=== PATIENT | male | born 1970 | race Caucasian/White ===

== ENCOUNTER 2021-04-26 08:47 | Emergency (ER) | payer OTHER, SELFPAY ==
[2021-04-26 08:58] VITALS: BP 126/78; PULSE 77; RESP 16; TEMP 36.6; O2SAT 99
--- NOTE | 2021-04-26 09:31 | ED.GENADULT ---
HPI - General Adult General Chief complaint: Unspecified Stated complaint: left side pain Time Seen by Provider: 04/26/21 09:18 Source: patient and RN notes reviewed Mode of arrival: ambulatory Limitations: no limitations History of Present Illness HPI narrative: Patient presents today complaining of intermittent left lateral chest wall pain. States the pain comes and goes. He just got out of the hospital yesterday after being worked up with an echocardiogram, EKG, and other blood tests for the last 1.5 days. He was seen by signaling project engineer and told that he either had a virus or muscle strain. He cannot follow-up with his PCP until next Thursday and is having so much discomfort he wanted to follow-up and see if there were any scans that could be done to see if this was a muscle issue. Currently rates his pain 5/10 and tried some ice this morning with some mild relief. Pain does not increase with deep breaths or arm movement. It does increase with touching of the area. Denies shortness of breath, numbness or tingling in the extremities, abdominal pain, nausea or vomiting. MD complaint: Left chest wall pain Related Data Home Medications Medication Instructions Recorded Confirmed atorvastatin 40 mg PO DAILY 03/02/19 04/26/21 pantoprazole 40 mg PO DIRECTED 03/02/19 04/26/21 zolpidem 10 mg PO DAILY 03/02/19 04/26/21 aspirin [Aspirin Low Dose] 81 mg PO DAILY 04/26/21 04/26/21 [id number] C-Mn 1 cap PO DIRECTED 04/26/21 04/26/21 [Glucosamine 1500 Complex] multivitamin with minerals [All 1 tablet PO DAILY 04/26/21 04/26/21 Purpose Multivitamin-Min] Allergies Allergy/AdvReac Type Severity Reaction Status Date / Time No Known Allergies Allergy Verified 04/26/21 09:03 Review of Systems Review of Systems: CONSTITUTIONAL: Denies body aches, fever, chills, or sweats. EYES: Denies visual changes, redness, or discharge. ENT: Denies rhinorrhea, congestion, sore throat, or otalgia. CARDIOVASCULAR: Denies chest pain, palpitations, or edema. RESPIRATORY: Denies cough or dyspnea. GASTROINTESTINAL: Denies abdominal pain, nausea, vomiting, or diarrhea. GENITOURINARY: Denies dysuria or hematuria. SKIN: Denies rash, itching, or wounds. MUSCULOSKELETAL: Denies back pain, joint pain, or myalgia.+ Chest wall pain NEUROLOGIC: Denies headache, numbness, tingling, or weakness. PSYCH: Denies depression or anxiety. [facility] Past Medical History Medical History (Updated 04/26/21 @ 09:37 by Paula Garcia, [facility], ) Insomnia Myocardial infarction Surgical History Surgical History (Updated 04/26/21 @ 09:34 by Paula Garcia, [facility], ) History of heart artery stent Social History Social History Gender identity (if verbalized by the patient): Male Comments At time of signature, I have reviewed and agree with nursing past medical, surgical, social and family history unless otherwise noted. Please see nursing chart for further information. There is no relevant family history pertinent to the presenting complaint Exam Narrative: GENERAL: Well-appearing, well-nourished, and in mild pain distress. HEAD: Normocephalic, atraumatic. EYES: EOMI. No redness or drainage. Conjunctivae normal. ENT: Mucous membranes pink and moist. Left lateral chest wall tenderness that extends up to the axilla. No edema, ecchymosis, erythema, crepitus, deformity. Pain in this area does not increase with movement of the arm. No tenderness to the anterior chest or back. NECK: Normal AROM. CHEST: No respiratory distress. Clear to auscultation. HEART: Regular rate and rhythm. No murmur appreciated. Normal peripheral pulses. ABDOMEN: Soft, nontender, nondistended, normal active bowel sounds. EXTREMITIES: Normal range of motion. No edema. SKIN: Warm, dry, no rash. Capillary refill normal. Normal skin turgor. NEURO: No focal deficits. Alert and oriented x3. Gait steady. PSYCH
== END 2021-04-26 09:39 | disposition home or self-care (01) ==
PROVIDERS: Emergency Provider Nurse Practitioner; PCP Registered Nurse
DX: R07.89 Other chest pain (principal); I25.2 Old myocardial infarction; Z95.5 Presence of coronary angioplasty implant and graft
CPT/HCPCS: 99213; G0463

== ENCOUNTER 2021-05-24 13:22 | Inpatient (IN) | payer OTHER, SELFPAY ==
[2021-05-24] VITALS (10 sets, daily range): BP systolic 96–125; BP diastolic 51–89; PULSE 53–68; RESP 16–23; TEMP 36–38.6; O2SAT 95–100; BMI 33.3
--- NOTE | ~2021-05-24 | CT_ITS ---
EXAMINATION: CT abdomen pelvis w con DATE: 05/24/2021 14:48 INDICATION: Sudden onset of sharp stabbing abdominal pain. Diarrhea. TECHNIQUE: Computed tomography (CT) of the abdomen and pelvis was performed with 100 CC Omnipaque 350 intravenous contrast. Automated exposure control and iterative reconstruction technique were employe d. Exam dose: 1585.07 mGy-cm total exam DLP. COMPARISON: 11/07/2010 radionuclide hepatobiliary scan 11/05/2010 CT abdomen pelvis FINDINGS: Mild peripheral atelectasis in the right lower lung the left lung base is clear. Heart size is within normal limits. Prominent coronary artery calcification. No pericardial or pleura l effusion. The liver, gallbladder, bile ducts, pancreas, pancreatic duct, spleen, and adrenal glands are unremar kable. Very small right renal cyst. 1.8 cm upper pole exophytic left renal cyst and 1 cm lower pole left delvin al exophytic cyst. Pinpoint left renal hilar calcification is likely arterial. No urinary tract calculus or hydrouretero nephrosis is evident. The urinary bladder is unremarkable. The prostate gland is unremarkable. There is atherosclerotic calcification but normal caliber of the abdominal aorta and iliac arteries. No intraperitoneal or retroperitoneal or pelvic mass lesion or adenopathy or ascites. Very small sliding hiatal hernia. There are fluid levels in the small and large bowel, suggesting enterocolitis. No bowel obstruction, bowel wall thickening, pneumatosis or intraperitoneal free air is detected. Moderately severe degenerative disc disease at L4-5. Severe degenerative disease at L5-S1. No suspicious osteolytic or osteoblastic lesions IMPRESSION: Fluid levels in small and large bowel suggesting enterocolitis Very small sliding hiatal hernia Coronary artery calcifications Bilateral renal cysts Reviewed, dictated and finalized at [facility] Reviewed, dictated and finalized at [facility].
--- NOTE | ~2021-05-24 | US_ITS ---
EXAMINATION: US abdomen limited DATE: 05/25/2021 14:25 INDICATION: Abnormal liver function tests. TECHNIQUE: Multiple grayscale and Doppler ultrasound images of the abdomen were obtained. COMPARISON: CT abdomen and pelvis 05/24/2021 FINDINGS: The visualized portions of the head, body, and tail of the pancreas are normal. The liver i s normal without focal lesion. There is normal flow in main portal vein. The gallbladder is normal in size. No gallstones or gallbladder wall thickening. There is no sonographic Post sign. The common duct is normal and measures 5 mm. IMPRESSION: 1. Normal right upper quadrant ultrasound. Reviewed, dictated and finalized at [facility].
--- NOTE | 2021-05-24 13:53 | ED.NAVMDI ---
HPI - Nausea/Vomiting/Diarrhea General Chief complaint: Nausea/Vomiting/Diarrhea Stated complaint: diarrhea Time Seen by Provider: 05/24/21 13:35 Source: patient Mode of arrival: EMS Limitations: no limitations History of Present Illness HPI Narrative: This is a 50 year old male that presents the ER for diarrhea and abdominal pain. Present since this morning. Reports crampy abdominal pain. Reports some nausea. Denies fever, vomiting, or dysuria. Related Data Home Medications Medication Instructions Recorded Confirmed atorvastatin 40 mg PO DAILY 03/02/19 04/26/21 pantoprazole 40 mg PO DIRECTED 03/02/19 04/26/21 zolpidem 10 mg PO DAILY 03/02/19 04/26/21 aspirin [Aspirin Low Dose] 81 mg PO DAILY 04/26/21 04/26/21 [id number] C-Mn 1 cap PO DIRECTED 04/26/21 04/26/21 [Glucosamine 1500 Complex] multivitamin with minerals [All 1 tablet PO DAILY 04/26/21 04/26/21 Purpose Multivitamin-Min] Allergies Allergy/AdvReac Type Severity Reaction Status Date / Time No Known Allergies Allergy Verified 04/26/21 09:03 Review of Systems Review of Systems: CONSTITUTIONAL: Denies fever GASTROINTESTINAL: Reports abdominal pain, nausea, and diarrhea. Denies vomiting GENITOURINARY: Denies dysuria or hematuria. All systems reviewed & are unremarkable except as noted in HPI and below PMFSH Past Medical History Medical History (Updated 05/24/21 @ 17:41 by Radhika Rodriguez PA-C) History of gastroesophageal reflux (GERD) Insomnia Myocardial infarction Surgical History Surgical History (Updated 04/26/21 @ 09:34 by Paula Garcia, [facility], ) History of heart artery stent Social History Social History (Updated 05/24/21 @ 13:55 by Radhika Rodriguez PA-C) Substance use: never Gender identity (if verbalized by the patient): Male Exam Narrative: GENERAL: Well-appearing, well-nourished, and in no acute distress. HEAD: Normocephalic, atraumatic. EYES: EOMI. ENT: Mucous membranes moist. CHEST: Clear to auscultation. No respiratory distress. No wheezes rales or rhonchi HEART: Regular rate and rhythm. No murmur heard. Normal peripheral pulses. ABDOMEN: Soft, nondistended, normal active bowel sounds. Mild tenderness to palpation throughout the abdomen, without guarding EXTREMITIES: Normal range of motion. No edema. SKIN: Warm, dry, no rash. NEURO: No focal deficits. Alert and oriented x3. PSYCH: Normal mood and affect Course Consultations Consultation #1: Spoke with hospitalist about patient and work-up who accepts admission Date: 05/24/21 Time: 17:00 Vital Signs Vital signs: Vital Signs Temperature 96.8 F L 05/24/21 13:32 Pulse Rate 68 05/24/21 13:32 Respiratory Rate 20 05/24/21 13:32 Temperature 96.8 F L 05/24/21 13:32 Pulse Rate 67 05/24/21 15:44 Respiratory Rate 23 H 05/24/21 15:44 Blood Pressure 125/66 05/24/21 15:44 Pulse Oximetry 99 05/24/21 15:44 MDM - Nausea/Vomiting/Diarrhea MDM Narrative Medical decision making narrative: Patient presents to the emergency department for abdominal pain and diarrhea. Ongoing today. He is afebrile and nontoxic-appearing. Blood pressure soft on arrival, this did respond to IV fluid administration. He is afebrile and nontoxic-appearing. CBC with leukocytosis to 14.6. Metabolic panel and lipase without concerning findings. Lactic acid is not elevated. UA without evidence of infection. Does show some dehydration. CT scan of the abdomen and pelvis shows enterocolitis. Patient and family updated on case findings. Patient will be admitted for further management of colitis with IV antibiotics and dehydration. Spoke with hospitalist about patient and work-up who accepts admission Lab Data Attestation: I reviewed the patient's lab results. Result diagrams: 05/24/21 13:47 05/24/21 13:47 Labs: Lab Results 05/24/21 05/24/21 05/24/21 Range/Units 13:47 13:47 13:57 WBC 14.6 H (4.5-10.0) K/
[2021-05-24 13:57] LABS: Basophils Percent Auto 0.3 % (0.2-1.2); Eosinophils Absolute Auto 0.2 K/mm3 (0-0.3); Hematocrit 50.3 % (42.0-52.0); Hemoglobin 17.7 g/dL (14.0-18.0); Immature Granulocyte Absolute 0.06 K/mm3 (0.00-0.031); Immature Granulocyte Percent A 0.4 % (0-0.5); Lymphocytes Absolute Auto 0.79 K/mm3 (0.9-3.2); Lymphocytes Percent Auto 5.4 % (18.3-44.2); Mean Corpuscular HGB Conc 35.2 g/dl (32-36); Mean Corpuscular Hemoglobin 33.5 pg (26-34); Mean Corpuscular Volume 95.1 fl (80-100); Mean Platelet Volume 9.2 fl (7.4-10.4); Monocytes Percent Auto 6.7 % (2.6-8.5); Neutrophils Absolute Auto 12.6 K/mm3 (1.3-6.7); Neutrophils Percent Auto 86.2 % (45.5-73.1); Platelet Count Result 172 k/mm3 (150-375); Red Blood Count 5.29 M/mm3 (4.6-6.20); Red Cell Distribution Width 12.7 % (11.5-14.5); White Blood Count 14.6 K/mm3 (4.5-10.0)
[2021-05-24 14:03] LABS: Alanine Aminotransferase 53 U/L (4-50); Albumin Level 4.9 g/dL (3.5-5.1); Alkaline Phosphatase 127 U/L (38-126); Anion Gap 9 mmol/L (8-16); Aspartate Amino Transferase 41 U/L (17-59); Bilirubin,Total 1.7 mg/dL (0.2-1.3); Blood Urea Nitrogen 18 mg/dL (9-20); Calcium 9.3 mg/dL (8.4-10.2); Carbon Dioxide 25 mmol/L (22-30); Chloride 104 mmol/L (98-107); Estimated CRCL calculation 112 ml/min; Estimated Glomerular Filt Rate > 60; Glucose 108 mg/dL (65-110); Lipase 45 U/L (23-300); Potassium 4.3 mmol/L (3.4-5.0); Sodium 138 mmol/L (137-145)
[2021-05-24] MEDS: MORPHINE SULFATE (*CRX) 4 MG/ML INJ IV PUSH (14:08)
[2021-05-24] MEDS: ONDANSETRON INJ 4 MG/2 ML VIAL IV PUSH ×2 (14:08→18:30)
[2021-05-24] MEDS: SODIUM CHLORIDE 0.9% IV 1,000 ML 999 ML IV CONT (14:08)
[2021-05-24 14:10] LABS: CRP < 0.5 mg/dL (<1.0)
[2021-05-24 14:19] LABS: Lactic Acid Reflex 1.8 mmol/L (0.7-2.1)
--- NOTE | 2021-05-24 15:41 | PC.NURSE ---
gave pt urinal for urine sample.
[2021-05-24 16:01] LABS: Add Urine Microscopic? YES; Appearance Urine Clear (Clear); Bilirubin Urine 1+ (Negative); Blood Urine Negative (Negative); Color Urine Yellow (Yellow); Glucose Urine UA Negative (Negative); Ketones Urine 1+ mg/dL (Negative); Leukocyte Esterase Ur Negative LEU/UL (Negative); Nitrate Urine Negative (Negative); Protein Urine Negative (Negative); Urobilinogen Urine 0.2 mg/dL (<2.0)
[2021-05-24 16:05] LABS: Bacteria Urine Trace /hpf; Mucus Urine Few /lpf; RBC Urine 0-2 /hpf (0-2); Squamous Epithelial Cell Urine Rare /hpf (Few); WBC Urine 0-3 /hpf
--- NOTE | 2021-05-24 19:14 | PM.IMHP ---
H&P: HPI History of Present Illness Date/Time: 05/24/21 19:14 Chief Complaint: Diarrhea. Narrative: This is a 50-year-old man with past medical history significant for obesity, gastroesophageal reflux disease, dyslipidemia. Patient presents to the emergency room due to abdominal pain and episode of profuse continues diarrhea that left him debilitated and weak. Patient has been his usual state of health prior to these. Patient denies any fevers rigors chills nausea or vomiting no blood in the stools, no cough no sputum production. Preliminary workup was significant for CT of abdomen and pelvis with fluid levels in the small and large bowel suggestive of enterocolitis. Alk phos was 127. Patient denies daily use of any laxatives. Decision has been made to admit the patient for further evaluation management and treatment. Review of Systems Review of Systems: Abdominal pain, profuse continues diarrhea. Constitutional: Constitutional: Denies chills, Denies fatigue, Denies fever(s), Denies malaise, Denies night sweats, Denies poor appetite and Denies weakness Eyes: Eyes: Denies change in vision ENT: Denies dysphagia, Denies nasal congestion, Denies nasal discharge, Denies nasal obstruction and Denies odynophagia Cardiovascular: Cardiovascular: Denies syncope, Denies pedal edema, Denies edema, Denies claudication, Denies leg edema, Denies lightheadedness, Denies radiating jaw, neck or arm pain, Denies palpitations, Denies dyspnea on exertion and Denies orthopnea Respiratory: Respiratory: Denies cough, Denies excessive phlegm production and Denies dyspnea Gastrointestinal: Gastrointestinal: Reports abdominal pain, Denies dyspepsia, Denies heartburn, Reports diarrhea, Denies nausea and Denies vomiting Genitourinary: Genitourinary: Denies dysuria and Denies flank pain Musculoskeletal: Musculoskeletal: Denies back pain, Denies arthralgias and Denies joint swelling Integumentary/Breasts: Skin/Breast: Denies rash Neurologic: Denies focal weakness and Denies Sensory deficit (Neuro) Psychiatric: Psychiatric: Reports no additional psychiatric complaints and Reports as per HPI Endocrine: Endocrine: Denies cold intolerance, Denies fatigue, Denies flushing, Denies heat intolerance, Denies polyphagia, Denies polydipsia and Denies palpitations Hematologic/Lymphatic: Hematologic/Lymphatic: Reports no additional hematologic/lymphatic complaints and Reports as per HPI Allergic/Immunologic: Allergic/Immunologic: Reports no additional allergic/immunologic complaints and Reports as per HPI [facility] Past Medical History Medical History (Updated 05/25/21 @ 03:42 by Geraldine Crabtree MD) History of gastroesophageal reflux (GERD) Insomnia Myocardial infarction Surgical History Surgical History (Updated 04/26/21 @ 09:34 by Paula Garcia, [facility], ) History of heart artery stent Social History Social History (Updated 05/24/21 @ 13:55 by Radhika Rodriguez PA-C) Years smoked: 32 Smoking status: Current every day smoker Tobacco type: cigarettes Alcohol intake: former Substance use: never Last use: 2008 Gender identity (if verbalized by the patient): Male Spiritual care concerns: No Meds Home Medications and Allergies Home Medications Medication Instructions Recorded Confirmed Type atorvastatin 40 mg PO DAILY 03/02/19 05/24/21 History pantoprazole 40 mg PO DAILY 03/02/19 05/24/21 History zolpidem 10 mg PO DAILY PRN 03/02/19 05/24/21 History aspirin [Aspirin Low Dose] 81 mg PO DAILY 04/26/21 05/24/21 History multivitamin with minerals [All 1 tablet PO DAILY 04/26/21 05/24/21 History Purpose Multivitamin-Min] glucosamine HCl 1,500 mg PO DAILY 05/24/21 05/24/21 History Allergies Allergy/AdvReac Type Severity Reaction Status Date / Time No Known Allergies Allergy Verified 05/24/21 18:58 Vital Signs Vital Signs - 24 hr 05/24/21 13:32 05/24/21 13:39 05/24/21 15:44 Temperature 96.8 F L Pulse Rate 68
[2021-05-25] MEDS: DEXTROSE 5%/0.45% SOD CHL 1,000 ML 100 ML IV CONT ×2 (05:38→20:08)
[2021-05-25 06:00] VITALS: BP 107/69; PULSE 53; RESP 20; TEMP 36.6; O2SAT 97
[2021-05-25 08:00] VITALS: PULSE 53; RESP 20; O2SAT 97
[2021-05-25] MEDS: THERAPEUTIC MULTIVITAMINS/MINERALS TAB (*BKC) 1 TABLET PO (09:56)
[2021-05-25] MEDS: ATORVASTATIN 40 MG TABLET PO (09:56)
[2021-05-25] MEDS: PANTOPRAZOLE 40 MG TABLET PO (09:56)
[2021-05-25] MEDS: ASPIRIN 81 MG ENTERIC TABLET PO (09:56)
[2021-05-25] MEDS: metroNIDAZOLE 500 MG/ISO 100ML 500 MG/100 ML BAG 100 MG IVPB ×3 (09:58→20:07)
--- NOTE | 2021-05-25 10:56 | PM.IMPN ---
Progress Note: A&P Assessment and Plan (1) Colitis: Code(s): K52.9 - Noninfective gastroenteritis and colitis, unspecified Status: Acute Assessment and Plan: Admit to regular medical floor Supportive care CT abdomen and pelvis reviewed 05/25/2021: - Continue to provide IVF for hydration status. - Monitor VS and labs - Continue with Zosyn 3.375 Gm Q6 hrs - Add Flagyl 500 mg Q6 hrs. - Stool studies ordered. - Clear liquid diet ordered. - Consider consulting GI should his symptoms worsen, or based off of findings of US. (2) Acute dehydration: Code(s): E86.0 - Dehydration Status: Acute Assessment and Plan: Receiving IV fluids Monitor daily intake and output 05/25/2021: - Continue IVF for hydration. - Start Clear liquid diet. - Accurate I&O. (3) History of gastroesophageal reflux (GERD): Code(s): Z87.19 - Personal history of other diseases of the digestive system Status: Inactive Assessment and Plan: - Continue PPI (4) Hyperbilirubinemia: Code(s): E80.6 - Other disorders of bilirubin metabolism Status: Acute Assessment and Plan: - Elevated Bilirubin noted at 1.7. US of RUQ is pending. - Consider consulting GI service after receiving results of US. - Follow labs and VS. - Pt. not icteric. Time Spent With Patient Time with patient: 15 - 25 minutes Subjective Date/time seen: 05/25/21 10:56 This pt. was examined at the bedside today in interval assessment after presenting to the ER and being admitted for his found Enterocolitis. He continues to have stools and was febrile overnight. He reports that his pain is a little bit better, but he does continue to have stools. No CP, Dyspnea, Vomiting. He does report some mild nausea. His Bilirubin is noted to be elevated, so the pt. will have an US of the RUQ, and we will perform stool studies on his diarrhea that he continues to have. Review of Systems Review of Systems: All systems reviewed & are unremarkable except as noted in HPI and below Exam Narrative: Patient is laying in bed Const: General: cooperative, comfortable, no acute distress, well developed, alert and awake Nutritional Appearance: overweight Orientation/consciousness: patient oriented x3 HENMT: Head: normal to inspection, normocephalic and atraumatic Ears: hearing grossly normal bilaterally General nose exam: Normal external nose present Face and sinus: normal facial exam Mouth: Yes dry mucous membranes Eyes: General: appearance normal, both eyes and all related structures Alignment and Position: alignment normal Sclera: sclerae normal Pupils: Equal, round and reactive pupils present EOM: EOMs intact bilaterally Neck: Neck: normal visual inspection, full ROM, no lymphadenopathy, supple and no JVD Thyroid: thyroid normal Lymphatic: no lymphadenopathy noted Resp: Effort & Inspection: normal respiratory effort and able to speak in complete sentences Auscultation: clear to auscultation bilaterally, no crackles, no rales, no rhonchi and no wheezes Cardio: Jugular venous distension: no JVD Rate: regular rate Rhythm: regular rhythm Heart sounds: S1 normal heart sound present and S2 normal heart sound present GI: Inspection: non-distended, Pannus present and obesity GI Palp: Yes Soft to palpation, No Firmness to palpation present (GI), Yes Tenderness to palpation present (GI) and No Guarding due to palpation present (GI) Auscultation: bowels sounds not normal and abnormal bowel sounds (Increased bowel sounds throughout all quadrants.) : General: Yes deferred Skin: Rashes: no rashes Wounds: no wounds Neuro: General: patient oriented x3, CN's II-XI intact bilaterally and Unable to assess gait Cranial nerves: Yes CN's II-XII intact bilaterally and Yes Equal, round and reactive pupils present Cognition (Neuro): normal cognition Speech: normal speech Gait exam (Neuro): Unable to assess gait Motor exam (neuro): 5/[address]
[2021-05-25 11:17] LABS: Toxigenic C. Diff NEGATIVE (NEGATIVE)
--- NOTE | 2021-05-25 11:33 | PC.NURSE ---
This RN, Pat Fajardo, charted under Radha Bolaños from 0700 today to 1130 today by mistake.
[2021-05-25 11:57] LABS: Hepatitis B Surface Antigen Negative (Negative)
[2021-05-25 12:02] LABS: HAV RESULT Negative (Negative); Hepatitis B Core IgM Result Negative (Negative)
[2021-05-25 12:14] LABS: Hepatitis C Virus Antibody Negative (Negative)
[2021-05-25 14:00] VITALS: BP 111/53; PULSE 51; RESP 20; TEMP 36.4; O2SAT 96
[2021-05-25 22:00] VITALS: BP 97/42; PULSE 52; RESP 16; TEMP 36.1; O2SAT 97
[2021-05-26] MEDS: metroNIDAZOLE 500 MG/ISO 100ML 500 MG/100 ML BAG 100 MG IVPB ×4 (03:30→20:16)
[2021-05-26 05:55] LABS: Basophils Percent Auto 0.2 % (0.2-1.2); Eosinophils Absolute Auto 0.1 K/mm3 (0-0.3); Eosinophils Percent Auto 2.2 % (0-4.4); Hematocrit 38.7 % (42.0-52.0); Hemoglobin 13.6 g/dL (14.0-18.0); Immature Granulocyte Absolute 0.03 K/mm3 (0.00-0.031); Immature Granulocyte Percent A 0.7 % (0-0.5); Lymphocytes Absolute Auto 1.03 K/mm3 (0.9-3.2); Lymphocytes Percent Auto 23.1 % (18.3-44.2); Mean Corpuscular HGB Conc 35.1 g/dl (32-36); Mean Corpuscular Hemoglobin 33.2 pg (26-34); Mean Corpuscular Volume 94.4 fl (80-100); Monocytes Absolute Auto 0.6 K/mm3 (0.1-0.6); Monocytes Percent Auto 13.7 % (2.6-8.5); Neutrophils Absolute Auto 2.7 K/mm3 (1.3-6.7); Neutrophils Percent Auto 60.1 % (45.5-73.1); Platelet Count Result 111 k/mm3 (150-375); Red Cell Distribution Width 12.5 % (11.5-14.5); White Blood Count 4.5 K/mm3 (4.5-10.0)
[2021-05-26 06:00] VITALS: BP 100/43; PULSE 50; RESP 18; TEMP 36.9; O2SAT 96
[2021-05-26 06:10] LABS: Alanine Aminotransferase 35 U/L (4-50); Albumin Level 3.1 g/dL (3.5-5.1); Alkaline Phosphatase 67 U/L (38-126); Anion Gap 5 mmol/L (8-16); Aspartate Amino Transferase 26 U/L (17-59); Bilirubin,Total 0.9 mg/dL (0.2-1.3); Blood Urea Nitrogen 9 mg/dL (9-20); Calcium 7.9 mg/dL (8.4-10.2); Carbon Dioxide 24 mmol/L (22-30); Chloride 107 mmol/L (98-107); Estimated CRCL calculation 123 ml/min; Estimated Glomerular Filt Rate > 60; Glucose 97 mg/dL (65-110); Magnesium 2.1 mg/dL (1.6-2.3); Potassium 3.3 mmol/L (3.4-5.0); Sodium 136 mmol/L (137-145)
[2021-05-26 08:00] VITALS: PULSE 50; RESP 18; O2SAT 96
--- NOTE | 2021-05-26 08:41 | ECG_ITS ---
Measurements Intervals [place] Rate: 50 P: 82 SD: 174 QRS: -1 QRSD: 125 T: 15 QT: 456 QTc: 417 Interpretive Statements SINUS BRADYCARDIA MODERATE INTRAVENTRICULAR CONDUCTION DELAY [110+ ms QRS DURATION] NONSPECIFIC T-WAVE ABNORMALITY ABNORMAL ECG NO PREVIOUS ECG AVAILABLE FOR COMPARISON Electronically Signed On 05-26-2021 11:23:25 CDT by Ismael Elkins M.D.
--- NOTE | 2021-05-26 08:58 | PM.IMPN ---
Progress Note: A&P Assessment and Plan (1) Infectious colitis, enteritis and gastroenteritis: Code(s): A09 - Infectious gastroenteritis and colitis, unspecified Status: Acute Assessment and Plan: Patient presented febrile, with frequent diarrhea. Patient has been treated with Zosyn x2 days, Flagyl x2 days. stopped Zosyn, and started levofloxacin today. EKG showed no QT prolongation with Zofran/levofloxacin. He was hungry today, and his nausea had resolved, with stools firming up some, so he was advanced to a full liquid diet for lunch. He tolerated this quite well, and we will advance his diet again for dinner. New drop in H&H 13.6/38.7 (17.7/50 on 05/26), and new thrombocytopenia of 111 (172). this lab was repeated several hours later, with improvement in his H&H. Decrease was likely due to fluid expansion. Hyperbilirubinemia and noted on 05/24, which has subsequently resolved as of today. New hypoalbuminemia Today at 3.1 (4.9 ). No elevation creatinine at this point. peripheral smear ordered Advanced diet as tolerated AM labs D/C Zofran (2) Hyperbilirubinemia: Code(s): E80.6 - Other disorders of bilirubin metabolism Status: Acute Assessment and Plan: Previously 1.7 on 05/24, today within normal limits. right upper quadrant ultrasound was normal. No transaminitis. Will continue to monitor as above (3) Acute dehydration: Code(s): E86.0 - Dehydration Status: Acute Assessment and Plan: Patient continues to receive IV fluids 100 mL/hour, is persistently borderline hypotensive today 100/43, and bradycardic. He is not on any home antihypertensives. Continue IV fluids Continue to monitor vital signs (4) DVT prophylaxis: Code(s): Z29.9 - Encounter for prophylactic measures, unspecified Status: Acute Subjective Date/time seen: 05/26/21 08:58 50-year-old male history of GERD, presenting to our care with nausea and voluminous diarrhea. Mr. Zhou provided additional history regarding his illness. He reports he does recall eating a tuna salad sandwich on Thursday that had been left in his warmth vehicle for several hours. His , Verna,was present in the room and confirmed she had advised him to throw the sandwich away and not eat it. He began to feel ill on Thursday with nausea, and diarrhea , and came in once he began to see purple spots in his vision. He had a prior GI bleed was treated at [facility] 3 years prior. He could not recall what the cause was, but stated he had bright red blood per rectum and an EGD was done on him at that time. Overall, today, he reports improvement in his stooling, stating it is more fully formed today. He is still quite dizzy and unsteady on his feet today. He denies epigastric pain, nausea, vomiting, Shortness of breath, chest pain,blood in the stool or dark stools. He is hungry and would like to eat. Review of Systems Review of Systems: All systems reviewed & are unremarkable except as noted in HPI and below Exam Narrative: GENERAL APPEARANCE: Alert and oriented x 3, in no apparent distress. HEENT: PERRL, EOMI. Sclerae anicteric. Dry mucous membranes, and dry chapped lips. NECK: Supple. No JVD or obvious carotid bruits. RESPIRATORY: Respirations are nonlabored. Breath sounds are equal and clear bilaterally. No wheezes, Rhonchi, or rales. CARDIOVASCULAR: Regular rate and rhythm with normal S1-S2. No murmurs, gallops, or rubs. GASTROINTESTINAL: Soft, flat, and benign. No mass, tenderness, guarding, or rebound. No organomegaly or hernia. Bowel sounds are present. SKIN: Warm, dry, well perfused. Poor turgor. No lesions, nodules, or rashes noted. Warm and dry. No rash or lesions on limited exam. EXTREMITIES: No cyanosis, clubbing, or edema. Radial and pedal pulses intact. NEUROLOGICAL: Alert. Cranial nerves 2-12 are grossly intact. No gross f
[2021-05-26] MEDS: THERAPEUTIC MULTIVITAMINS/MINERALS TAB (*BKC) 1 TABLET PO (09:22)
[2021-05-26] MEDS: ATORVASTATIN 40 MG TABLET PO (09:22)
[2021-05-26] MEDS: ASPIRIN 81 MG ENTERIC TABLET PO (09:23)
[2021-05-26] MEDS: PANTOPRAZOLE 40 MG TABLET PO (09:23)
[2021-05-26 10:02] LABS: Hematocrit 38.8 % (42.0-52.0); Hemoglobin 13.8 g/dL (14.0-18.0)
[2021-05-26 12:24] LABS: Alanine Aminotransferase 36 U/L (4-50); Albumin Level 3.4 g/dL (3.5-5.1); Alkaline Phosphatase 71 U/L (38-126); Anion Gap 4 mmol/L (8-16); Aspartate Amino Transferase 28 U/L (17-59); Bilirubin,Total 0.7 mg/dL (0.2-1.3); Blood Urea Nitrogen 7 mg/dL (9-20); Carbon Dioxide 25 mmol/L (22-30); Chloride 109 mmol/L (98-107); Estimated CRCL calculation 137 ml/min; Estimated Glomerular Filt Rate > 60; Glucose 112 mg/dL (65-110); Potassium 3.4 mmol/L (3.4-5.0); Sodium 138 mmol/L (137-145)
[2021-05-26] MEDS: DEXTROSE 5%/0.45% SOD CHL 1,000 ML 100 ML IV CONT (12:45)
[2021-05-26 14:00] VITALS: BP 107/62; PULSE 50; RESP 14; TEMP 37.1; O2SAT 97
[2021-05-26] MEDS: SODIUM CHLORIDE 0.9% IV 250 ML 100 ML IV CONT (16:07)
[2021-05-26] MEDS: CALCIUM CARBONATE (OSCAL) 250 MG TABLET PO (17:26)
[2021-05-26 20:00] VITALS: PULSE 50; RESP 14; O2SAT 97
[2021-05-26 22:00] VITALS: BP 104/51; PULSE 47; RESP 16; TEMP 36.1; O2SAT 98
[2021-05-27] MEDS: metroNIDAZOLE 500 MG/ISO 100ML 500 MG/100 ML BAG 100 MG IVPB ×2 (03:16→08:26)
[2021-05-27 06:00] VITALS: BP 124/76; PULSE 47; RESP 18; TEMP 37; O2SAT 96
[2021-05-27 06:13] LABS: Basophils Percent Auto 0.2 % (0.2-1.2); Eosinophils Absolute Auto 0.1 K/mm3 (0-0.3); Eosinophils Percent Auto 2.2 % (0-4.4); Hemoglobin 13.8 g/dL (14.0-18.0); Immature Granulocyte Absolute 0.01 K/mm3 (0.00-0.031); Immature Granulocyte Percent A 0.2 % (0-0.5); Immature Platelet Fraction Pct 1.9 % (0.9-11.2); Lymphocytes Absolute Auto 1.14 K/mm3 (0.9-3.2); Lymphocytes Percent Auto 25.3 % (18.3-44.2); Mean Corpuscular HGB Conc 33.7 g/dl (32-36); Mean Corpuscular Hemoglobin 32.9 pg (26-34); Mean Corpuscular Volume 97.9 fl (80-100); Mean Platelet Volume 9.5 fl (7.4-10.4); Monocytes Absolute Auto 0.7 K/mm3 (0.1-0.6); Monocytes Percent Auto 14.9 % (2.6-8.5); Neutrophils Absolute Auto 2.6 K/mm3 (1.3-6.7); Neutrophils Percent Auto 57.2 % (45.5-73.1); Platelet Count Result 131 k/mm3 (150-375); Red Blood Count 4.19 M/mm3 (4.6-6.20); Red Cell Distribution Width 12.7 % (11.5-14.5); White Blood Count 4.5 K/mm3 (4.5-10.0)
[2021-05-27 06:18] LABS: Alanine Aminotransferase 35 U/L (4-50); Albumin Level 3.2 g/dL (3.5-5.1); Alkaline Phosphatase 75 U/L (38-126); Anion Gap 4 mmol/L (8-16); Aspartate Amino Transferase 26 U/L (17-59); Bilirubin,Total 0.8 mg/dL (0.2-1.3); Blood Urea Nitrogen 6 mg/dL (9-20); Calcium 8.2 mg/dL (8.4-10.2); Carbon Dioxide 25 mmol/L (22-30); Chloride 108 mmol/L (98-107); Estimated CRCL calculation 137 ml/min; Estimated Glomerular Filt Rate > 60; Glucose 88 mg/dL (65-110); Potassium 3.5 mmol/L (3.4-5.0); Sodium 137 mmol/L (137-145)
--- NOTE | 2021-05-27 07:55 | PM.DS ---
DS: Admitting Diagnosis Discharge Date 05/27/21 1200 Admitting Diagnosis Enterocolitis and dehydration. DS: Discharge Diagnosis Discharge Diagnosis (1) Infectious colitis, enteritis and gastroenteritis: Code(s): A09 - Infectious gastroenteritis and colitis, unspecified Status: Acute Assessment and Plan: Patient presented febrile, with frequent diarrhea, starting two days after eating a tuna salad sandwich. Patient has been treated with Zosyn x2 days, Flagyl x2 days. Stopped Zosyn, and started levofloxacin. Patient received 3 days worth of Flagyl and 1 day of Levaquin. EKG showed no QT prolongation with Zofran/levofloxacin. Patient's appetite has returned, stools are less voluminous and firmer, nausea has resolved, and he has tolerated low fat diet. New drop in H&H 13.6/38.7 (17.7/50 on 05/26), and new thrombocytopenia of 111 (172). This lab was repeated several hours later, with improvement in his H&H. Decrease was likely due to fluid expansion. Hyperbilirubinemia and noted on 05/24, which has subsequently resolved as of today. No elevation creatinine at this point. Continue Flagyl 500mg PO Q 8 hrs for 4 days. Continue Levofloxacin 750mg PO x 6 days. Low fat diet at home as tolerated. Stool cultures are pending, we will follow up with these results. Return for any worsening symptoms, fever, diarrhea, blood in the stool, nausea/vomiting. (2) Hyperbilirubinemia: Code(s): E80.6 - Other disorders of bilirubin metabolism Status: Acute Assessment and Plan: This has resolved. Previously 1.7 on 05/24Right upper quadrant ultrasound was normal. No transaminitis. Will continue to monitor as above (3) Acute dehydration: Code(s): E86.0 - Dehydration Status: Acute Assessment and Plan: Patient has been sufficiently rehydrated, with BUN/Cr normal. Continue to encourage oral rehydration at home. (4) DVT prophylaxis: Code(s): Z29.9 - Encounter for prophylactic measures, unspecified Status: Acute Assessment and Plan: SCDs DS: Summary Hospital Course Reason for hospitalization: Enterocolitis Hospital Course: See above for hospital course. Status at Discharge Overall status at discharge: patient is progressing back to baseline Time Spent with Patient Time attestation: Total time spent providing and/or coordinating discharge services: 35 mins Time spent: Greater than 30 minutes Exam Narrative: GENERAL APPEARANCE: Alert and oriented x 3, in no apparent distress. HEENT: PERRL, EOMI. Sclerae anicteric. Moist mucous membranes. NECK: Supple. No JVD or obvious carotid bruits. RESPIRATORY: Respirations are nonlabored. Breath sounds are equal and clear bilaterally. No wheezes, Rhonchi, or rales. CARDIOVASCULAR: Regular rate and rhythm with normal S1-S2. No murmurs, gallops, or rubs. GASTROINTESTINAL: Soft, flat, and benign. No mass, tenderness, guarding, or rebound. No organomegaly or hernia. Bowel sounds are present. SKIN: Warm, dry, well perfused. Good turgor. No lesions, nodules, or rashes noted. Warm and dry. No rash or lesions on limited exam. EXTREMITIES: No cyanosis, clubbing, or edema. Radial and pedal pulses intact. NEUROLOGICAL: Alert. Cranial nerves 2-12 are grossly intact. No gross focal deficits to casual conversation. PSYCHIATRIC: Pleasant and cooperative with normal mood and affect. DS: Data Data Completed and Pending Labs on day of discharge: Labs from last 24 hours 05/27/21 05/27/21 05/26/21 05:49 05:49 12:01 WBC 4.5 RBC 4.19 L Hgb 13.8 L Hct 41.0 L MCV 97.9 MCH 32.9 MCHC 33.7 RDW 12.7 Plt Count 131 L MPV 9.5 Immature Gran % (Auto) 0.2 Neut % (Auto) 57.2 Lymph % (Auto) 25.3 Burnett % (Auto) 14.9 H Eos % (Auto) 2.2 Baso % (Auto) 0.2 Lymph # (Auto) 1.14 Burnett # (Auto) 0.7 H Eos # (Auto) 0.1 Baso # (Auto)
[2021-05-27 08:00] VITALS: PULSE 47; RESP 18; O2SAT 96
[2021-05-27] MEDS: ASPIRIN 81 MG ENTERIC TABLET PO (08:25)
[2021-05-27] MEDS: THERAPEUTIC MULTIVITAMINS/MINERALS TAB (*BKC) 1 TABLET PO (08:26)
[2021-05-27] MEDS: ATORVASTATIN 40 MG TABLET PO (08:26)
[2021-05-27] MEDS: PANTOPRAZOLE 40 MG TABLET PO (08:26)
[2021-05-27] MEDS: CALCIUM CARBONATE (OSCAL) 250 MG TABLET PO (08:26)
[2021-05-27 14:00] VITALS: BP 113/71; PULSE 46; RESP 18; TEMP 36.7; O2SAT 99
[2021-05-27 14:26] VITALS: BMI 33.3
== END 2021-05-27 15:05 | disposition home or self-care (01) | DRG 392 ==
LOC: ANHED 13:43 → ANH3MEDSUR 17:35
PROVIDERS: Nurse Practitioner Adult Health; Physician Assistant; Admitting Provider Family Medicine; Emergency Provider Emergency Medicine; PCP Registered Nurse; Visit Provider Student in an Organized Health Care Education/Training Program
DX: K52.9 Noninfective gastroenteritis and colitis, unspecified (principal); E86.0 Dehydration; K21.9 Gastro-esophageal reflux disease without esophagitis; E80.6 Other disorders of bilirubin metabolism; D69.6 Thrombocytopenia, unspecified; E78.5 Hyperlipidemia, unspecified; F17.210 Nicotine dependence, cigarettes, uncomplicated; E66.9 Obesity, unspecified; Z68.33 Body mass index [BMI] 33.0-33.9, adult; I25.2 Old myocardial infarction; Z95.5 Presence of coronary angioplasty implant and graft
CPT/HCPCS: 36415; 74177; 76705; 80053; 80074; 81001; 83605; 83690; 83735; 85014; 85018; 85025; 85055; 86140; 87045; 87269; 87272; 87427; 87493; 93005; 96360; 96361; 96365; 96367; 96375; 96376; 99285; A9270; G0378; J0131; J1956; J2270; J2405; J2543; J7030; J7050; Q9967

== ENCOUNTER 2022-07-25 14:56 | Emergency (ER) | payer OTHER, SELFPAY ==
[2022-07-25] VITALS (19 sets, daily range): BP systolic 110–131; BP diastolic 77–89; PULSE 41–66; RESP 14–21; TEMP 36.6; O2SAT 95–98
--- NOTE | ~2022-07-25 | CT_ITS ---
EXAMINATION: CT chest abdomen pelvis w con DATE: 07/25/2022 17:55 INDICATION: LUQ pain and L rib pain after fall . TECHNIQUE: Computed tomography (CT) of the chest, abdomen, and pelvis was performed with 100 mL Omnip aque-350 intravenous contrast. Automated exposure control and iterative reconstruction technique were employed. The dose-length product was 1975.08 mGy-cm. COMPARISON: 05/24/2021 CT abdomen and pelvis; x-ray chest 05/30/2016 FINDINGS: CHEST: Thoracic aorta: No significant dilation or calcification. Lung parenchyma and airways: Lungs and airways are clear. Thoracic inlet, axillae and chest wall: No thyroid or soft tissue mass. No axillary lymphadenopathy. Mediastinum: No mass or lymphadenopathy. Heart and pericardium: Mild cardiomegaly. No pericardial effusion. Coronary artery calcifications: Heavy LAD calcification. Pleura: No effusion or mass. Thoracic bones: Nondisplaced left sixth anterior rib fracture. ABDOMEN/PELVIS: Liver: Normal. Biliary/Gallbladder: Gallbladder is normal. No bile duct dilation. Pancreas: No mass or duct dilation. Spleen: Normal. Adrenals:No mass. Kidneys: Simple left upper pole cyst. Left midpole subcentimeter hypodensity, too small to characteri ze but most likely a cyst. No suspicious mass, stone, or hydronephrosis. GI tract: Uncomplicated duodenal diverticulum. Persistent foreign body in a left upper quadrant small bowel loop, unchanged. No small or large bowel dilation. Normal appendix. Diverticulosis without div erticulitis. Mesentery/Peritoneum: No ascites, mass, or free air. Retroperitoneum: No mass Atherosclerotic abdominal aortic and/or arterial calcifications. Pelvis: Pelvic organs are within normal limits Soft Tissues: Very small right upper abdominal wall hernia containing a portion of the anterior wall of the pylorus, without evidence of wall thickening, inflammatory change, or obstruction. Abdominopelvic bones: No acute osseous finding in the abdomen/pelvis. IMPRESSION: Nondisplaced left sixth anterior rib fracture. No other acute finding in the chest, abdomen, or pelvi s. Reviewed, dictated and finalized at location K. IMPRESSION: Nondisplaced left sixth anterior rib fracture. No other acute finding in the ch est, abdomen, or pelvis.
--- NOTE | 2022-07-25 16:05 | ECG_ITS ---
Measurements Intervals [place] Rate: 41 P: 87 WV: 179 QRS: 1 QRSD: 117 T: 29 QT: 456 QTc: 378 Interpretive Statements SINUS BRADYCARDIA MODERATE INTRAVENTRICULAR CONDUCTION DELAY [110+ ms QRS DURATION] ABNORMAL ECG COMPARED TO ECG 05/26/2021 09:57:53 NO SIGNIFICANT CHANGES Electronically Signed On 07-26-2022 9:13:42 CDT by Ismael Elkins M.D.
--- NOTE | 2022-07-25 16:07 | ED.GENADULT ---
HPI - General Adult General Chief complaint: Unspecified <FRANSICO Dinero Last Filed: 07/25/22 19:10> Stated complaint: left sided abdominal pain <Margaux To PA-C - Last Filed: 07/25/22 19:10> Time Seen by Provider: 07/25/22 15:44 <Margaux To PA-C - Last Filed: 07/25/22 19:10> History of Present Illness HPI narrative: 51-year-old male reports for evaluation of L lower rib pain and L upper abdominal pain since 07/06. Pt states on 07/06, patient had a ground-level fall, landing on his left side. States he was reaching up to grab a screw off of a fence, miss-stepped and fell to the ground. Reports the following day, he developed increased left-sided rib and upper abdominal pain that has improved but is still persistent, therefore he came to the ED today. He states he had outpatient x-rays performed which did not show rib fracture. States the pain is worse with movement and deep breaths, better with Tylenol, ibuprofen and heat. Denies hitting his head, LOC, focal numbness or weakness, chest pain, SOB, fever, cough or congestion, n/v/d. <FRANSICO Dinero Last Filed: 07/25/22 19:10> Related Data Home medications: Home Medications Medication Instructions Recorded Confirmed atorvastatin 40 mg tablet 40 mg PO DAILY 03/02/19 05/24/21 pantoprazole 40 mg tablet,delayed 40 mg PO DAILY 03/02/19 05/24/21 release zolpidem 10 mg tablet 10 mg PO DAILY PRN Insomnia 03/02/19 05/24/21 aspirin 81 mg tablet,delayed 81 mg PO DAILY 04/26/21 05/24/21 release (Richelle Low Dose Aspirin) multivitamin with minerals 1 tablet PO DAILY 04/26/21 05/24/21 glucosamine HCl 1,500 mg tablet 1,500 mg PO DAILY 05/24/21 05/24/21 <FRANSICO Dinero Last Filed: 07/25/22 19:10> Allergies/adverse reactions: Allergies Allergy/AdvReac Type Severity Reaction Status Date / Time No Known Allergies Allergy Verified 05/24/21 18:58 <Margaux To PA-C - Last Filed: 07/25/22 19:10> Review of Systems Review of Systems: CONSTITUTIONAL: Denies fever, chills EYES: Denies visual changes, redness, or discharge. ENT: Denies rhinorrhea, congestion, sore throat, or otalgia. CARDIOVASCULAR: See HPI RESPIRATORY: Denies cough or dyspnea. GASTROINTESTINAL: See HPI GENITOURINARY: Denies dysuria or hematuria. SKIN: Denies rash or itching. MUSCULOSKELETAL: Denies back pain, joint pain, or myalgia. NEUROLOGIC: Denies headache, numbness, dizziness, or weakness. PSYCHIATRIC: Denies anxiety or depression. <Margaux To PA-C - Last Filed: 07/25/22 19:10> [facility] Past Medical History Medical History: Medical History History of gastroesophageal reflux (GERD) Insomnia Myocardial infarction <Margaux To PA-C - Last Filed: 07/25/22 19:10> Surgical History Surgical History: Surgical History History of heart artery stent <Margaux To PA-C - Last Filed: 07/25/22 19:10> Social History Social History: Social History Years smoked: 32 Smoking status: Current every day smoker Tobacco type: cigarettes Alcohol intake: former Substance use: never Last use: 2008 Gender identity (if verbalized by the patient): Male Spiritual care concerns: No <Margaux To PA-C - Last Filed: 07/25/22 19:10> Exam Narrative: GENERAL: Well-appearing, in no acute distress. HEAD: Normocephalic EYES: PERRLA, EOMI ENT: Nares clear. Mucous membranes moist. Oropharynx without tonsillar hypertrophy exudate or other lesions. NECK: Supple. No nuchal rigidity. CHEST: No respiratory distress. Clear to auscultation, no adventitious breath sounds. Tenderness to the left anterior lateral rib rales without overlying skin changes, crepitus or obvious deformity. HEART: Regular rate and rhythm. No murmur he
[2022-07-25 16:25] LABS: Basophils Percent Auto 0.2 % (0.2-1.2); Eosinophils Absolute Auto 0.1 K/mm3 (0-0.3); Eosinophils Percent Auto 1.5 % (0-4.4); Hematocrit 43.9 % (42.0-52.0); Immature Granulocyte Absolute 0.03 K/mm3 (0.00-0.031); Immature Granulocyte Percent A 0.4 % (0-0.5); Lymphocytes Absolute Auto 2.48 K/mm3 (0.9-3.2); Mean Corpuscular HGB Conc 34.2 g/dl (32-36); Mean Corpuscular Volume 96.7 fl (80-100); Mean Platelet Volume 9.4 fl (7.4-10.4); Monocytes Absolute Auto 0.6 K/mm3 (0.1-0.6); Monocytes Percent Auto 7.6 % (2.6-8.5); Neutrophils Percent Auto 60.3 % (45.5-73.1); Platelet Count Result 159 k/mm3 (150-375); Red Blood Count 4.54 M/mm3 (4.6-6.20); Red Cell Distribution Width 12.6 % (11.5-14.5); White Blood Count 8.3 K/mm3 (4.5-10.0)
[2022-07-25 16:38] LABS: Alanine Aminotransferase 44 U/L (6-50); Alkaline Phosphatase 98 U/L (38-126); Anion Gap 4 mmol/L (8-16); Aspartate Amino Transferase 30 U/L (17-59); Bilirubin,Total 0.8 mg/dL (0.2-1.3); Blood Urea Nitrogen 15 mg/dL (9-20); Calcium 8.7 mg/dL (8.4-10.2); Carbon Dioxide 28 mmol/L (22-30); Chloride 108 mmol/L (98-107); Estimated CRCL calculation 124 ml/min; Estimated Glomerular Filt Rate > 60; Glucose 97 mg/dL (65-110); Lipase 59 U/L (23-300); Potassium 3.6 mmol/L (3.4-5.0); Sodium 140 mmol/L (137-145)
[2022-07-25] MEDS: KETOROLAC 30 MG/ML VIAL (*BKC) IV PUSH (17:06)
[2022-07-25 17:10] LABS: D Dimer 0.43 ug/mL (<0.48)
[2022-07-25 17:23] LABS: Appearance Urine Clear (Clear); Bilirubin Urine Negative (Negative); Blood Urine Negative (Negative); Color Urine Yellow (Yellow); Glucose Urine UA Negative (Negative); Ketones Urine Trace mg/dL (Negative); Leukocyte Esterase Ur Negative LEU/UL (Negative); Nitrate Urine Negative (Negative); Protein Urine Negative (Negative); Specific Grav Ur 1.024 (1.001-1.035)
[2022-07-25 17:31] LABS: Add Urine Microscopic? NO
[2022-07-25 18:01] LABS: Troponin I < 0.012 ng/mL (0.000-0.034)
== END 2022-07-25 19:21 | disposition home or self-care (01) ==
PROVIDERS: Emergency Medicine; Emergency Provider Physician Assistant; PCP Registered Nurse
DX: S22.32XA Fracture of one rib, left side, initial encounter for closed fracture (principal); I25.2 Old myocardial infarction; K21.9 Gastro-esophageal reflux disease without esophagitis; F17.210 Nicotine dependence, cigarettes, uncomplicated; R00.1 Bradycardia, unspecified; I45.9 Conduction disorder, unspecified; W18.39XA Other fall on same level, initial encounter
CPT/HCPCS: 36415; 71260; 74177; 80053; 81003; 83690; 84484; 85025; 85380; 93005; 99284; J1885; Q9967

== ENCOUNTER 2022-12-04 05:43 | Day surgery (SDC) | payer OTHER, SELFPAY ==
[2022-06-20 09:57] VITALS: BMI 35.3
[2022-11-11 13:09] VITALS: BMI 36.5
[2022-12-04] MEDS: LACTATED RINGERS 1,000 ML 150 ML IV CONT (06:36)
--- NOTE | 2022-12-04 07:25 | WPDANESEPPF ---
Anes - Initial Pre Proc Eval Procedure: Operation Date: 12/04/22 07:30 Proposed Procedures p Screening Colonoscopy - Salty Warner MD Date/Time: 12/04/22 07:25 Surgeon: Salty Warner MD Pre Op Diagnosis: Neoplasm Screening Patient Data Age: 52 Gender: M Height: 1.93 m Weight: 128.7 kg Allergies Allergy/AdvReac Type Severity Reaction Status Date / Time No Known Allergies Allergy Verified 12/04/22 06:26 Home Medications Medication Instructions Recorded Confirmed Type atorvastatin 40 mg tablet 40 mg PO DAILY 03/02/19 12/04/22 History pantoprazole 40 mg tablet,delayed 40 mg PO DAILY 03/02/19 12/04/22 History release zolpidem 10 mg tablet 10 mg PO DAILY PRN Insomnia 03/02/19 12/04/22 History aspirin 81 mg tablet,delayed 81 mg PO DAILY 04/26/21 12/04/22 History release (Richelle Low Dose Aspirin) multivitamin with minerals 1 tablet PO DAILY 04/26/21 12/04/22 History glucosamine HCl 1,500 mg tablet 1,500 mg PO DAILY 05/24/21 12/04/22 History Patient hx anesthesia problems: none Family hx anesthesia problems: none Results Review: All pre-operative results and documents have been reviewed as part of the pre-operative evaluation. [facility] Past Medical History Medical History (Updated 12/04/22 @ 07:25 by Lance Monte MD) CAD (coronary artery disease) History of gastroesophageal reflux (GERD) Insomnia Myocardial infarction Obesity Tobacco abuse Surgical History Surgical History History of heart artery stent Social History Social History Smoking packs per day: 2 Smoking cigarettes per day: 40.0 Years smoked: 30 Smoking pack-years: 60.00 Smoking status: Heavy tobacco smoker Tobacco type: cigarettes Alcohol intake: former Alcohol use details: QUIT 2008 Substance use: never Substance use type: does not use Last use: 2008 Living arrangements: with family Gender identity (if verbalized by the patient): Male Spiritual care concerns: No Anes - Eval Final PreProcedure Day of Procedure 12/04/22 07:25 Patient weight: obese Heart: regular rate and rhythm Lungs: clear to auscultation Airway: Mallampati scale class II Neurological: alert and oriented Last oral intake: >/= 8 hours ASA classification: III Emergent: no Anesthetic plan: proceed Anesthesia type and monitoring: general GIVS and standard monitoring Results Review: All pre-operative results and documents have been reviewed as part of the pre-operative evaluation. Informed Consent: The patient's anesthetic plan and its attendant risks and benefits were discussed with the patient/family/POA. Questions were solicited and answers provided to the satisfaction of the patient/family/POA.
[2022-12-04 07:30] VITALS: BP 125/83; PULSE 90; RESP 16; TEMP 36.9; O2SAT 98
--- NOTE | 2022-12-04 07:32 | PM.HPGS ---
History of Present Illness History of Present Illness Consent: Risks, benefits, and alternatives have been discussed and questions answered. Patient agrees to proceed with procedure. Chief complaint: Neoplasm Screening Narrative: Chavez Zhou is a 52 year old male here for first screening colonoscopy Review of Systems Constitutional: Constitutional: Denies headache(s) and Denies weakness Eyes: Eyes: Denies blurry vision ENT: Reports Normal hearing present, Denies headache(s) and Denies neck pain Cardiovascular: Cardiovascular: Denies chest pain and Denies dyspnea Respiratory: Respiratory: Denies dyspnea Gastrointestinal: Gastrointestinal: Reports no additional gastrointestinal complaints Genitourinary: Genitourinary: Denies dysuria Musculoskeletal: Musculoskeletal: Denies neck pain Integumentary/Breasts: Skin/Breast: Denies dry skin Neurologic: Reports Normal hearing present, Denies headache(s) and Denies weakness Psychiatric: Psychiatric: Denies anxiety Endocrine: Endocrine: Denies change in body appearance Hematologic/Lymphatic: Hematologic/Lymphatic: Denies easy bleeding Allergic/Immunologic: Allergic/Immunologic: Denies urticaria PMF Past Medical History Medical History (Updated 12/04/22 @ 07:33 by Salty Warner MD) CAD (coronary artery disease) Colon cancer screening History of gastroesophageal reflux (GERD) Insomnia Myocardial infarction Obesity Tobacco abuse Surgical History Surgical History History of heart artery stent Social History Social History Smoking packs per day: 2 Smoking cigarettes per day: 40.0 Years smoked: 30 Smoking pack-years: 60.00 Smoking status: Heavy tobacco smoker Tobacco type: cigarettes Alcohol intake: former Alcohol use details: QUIT 2008 Substance use: never Substance use type: does not use Last use: 2008 Living arrangements: with family Gender identity (if verbalized by the patient): Male Spiritual care concerns: No Meds Home Medications and Allergies Home Medications Medication Instructions Recorded Confirmed Type atorvastatin 40 mg tablet 40 mg PO DAILY 03/02/19 12/04/22 History pantoprazole 40 mg tablet,delayed 40 mg PO DAILY 03/02/19 12/04/22 History release zolpidem 10 mg tablet 10 mg PO DAILY PRN Insomnia 03/02/19 12/04/22 History aspirin 81 mg tablet,delayed 81 mg PO DAILY 04/26/21 12/04/22 History release (Richelle Low Dose Aspirin) multivitamin with minerals 1 tablet PO DAILY 04/26/21 12/04/22 History glucosamine HCl 1,500 mg tablet 1,500 mg PO DAILY 05/24/21 12/04/22 History Allergies Allergy/AdvReac Type Severity Reaction Status Date / Time No Known Allergies Allergy Verified 12/04/22 06:26 Vital Signs Vital Signs - 24 hr 12/04/22 07:30 Temperature 98.4 F Pulse Rate 90 Respiratory Rate 16 Blood Pressure 125/83 Pulse Oximetry 98 Oxygen Delivery Room Air Exam Const: General: comfortable and no acute distress HENMT: Face/Nose/Sinus: Normal nares present Eyes: General: appearance normal, both eyes and all related structures Neck: Neck: no JVD Resp: Auscultation: clear to auscultation bilaterally Cardio: Rate: regular rate Rhythm: regular rhythm GI: Inspection: non-distended GI Palp: Yes Soft to palpation Skin: General skin exam: normal color Neuro: General: gait normal Speech: normal speech Extrem: General: normal to inspection Psych: Mental Status: mental status grossly normal Assessment and Plan Assessment and plan (1) Colon cancer screening: Code(s): Z12.11 - Encounter for screening for malignant neoplasm of colon Status: Acute Assessment and Plan: colonoscopy
[2022-12-04 07:50] VITALS: BP 106/55; PULSE 52; RESP 18; O2SAT 92
[2022-12-04 08:00] VITALS: BP 117/90; PULSE 50; RESP 18; O2SAT 98
[2022-12-04 08:10] VITALS: BP 143/88; PULSE 48; RESP 18; O2SAT 96
--- NOTE | 2022-12-04 08:19 | WPDANESPN ---
Anes - Prog Note Post-Op Date/Time: 12/04/22 08:19 Cardiovascular status: normal Respiratory status: normal Airway patency: baseline Mental status: baseline Post-Op hydration status: normal Vital Signs: Last Vital Signs Temp 36.9 C 12/04/22 07:30 Pulse 52 L 12/04/22 07:50 Resp 18 12/04/22 07:50 BP 106/55 L 12/04/22 07:50 Pulse Ox 92 12/04/22 07:50 O2 Del Method Room Air 12/04/22 07:50 Pain Score (VAS): 0/10 I/O: Intake & Output 12/03/22 12/04/22 12/04/22 23:59 07:59 15:59 Intake Total 300 Balance 300 Patient Feedback: Patient satisfied with anesthetic care.
== END 2022-12-04 08:25 | disposition home or self-care (01) ==
PROVIDERS: PCP Registered Nurse; Visit Provider Internal Medicine Gastroenterology
PROC: 0DJD8ZZ Inspection of Lower Intestinal Tract, Via Natural or Artificial Opening Endoscopic (ICD-10-PCS; CPT 45378; principal; 2022-12-04 07:30)
DX: Z12.11 Encounter for screening for malignant neoplasm of colon (principal); D12.4 Benign neoplasm of descending colon
CPT/HCPCS: 45385

== ENCOUNTER 2022-12-04 11:32 | Outpatient (NON) | payer OTHER, SELFPAY | END 2022-12-04 11:33 | disposition home or self-care (01) | LOC: ANHLAB 12-05 11:35 | PROVIDERS: PCP Registered Nurse; Visit Provider Internal Medicine Gastroenterology | DX: Z12.11 Encounter for screening for malignant neoplasm of colon (principal); D12.4 Benign neoplasm of descending colon | CPT/HCPCS: 88305 ==

== ENCOUNTER 2023-02-03 08:58 | Emergency (ER) | payer BC, SELFPAY ==
--- NOTE | ~2023-02-03 | XR_ITS ---
EXAMINATION: XR chest 1V portable 02/03/2023 09:39 INDICATION: Cough PROCEDURE: AP view of the chest COMPARISON: 05/30/2016 FINDINGS: The lungs are clear. The cardiomediastinal silhouette is within normal limits. There are no pleural effusions. There is no pneumothorax suspected. IMPRESSION: 1: NO ACUTE CARDIOPULMONARY DISEASE. Reviewed, dictated and finalized at location L. [employer]
[2023-02-03 09:02] VITALS: BP 136/90; PULSE 58; RESP 18; TEMP 37.2; O2SAT 100
--- NOTE | 2023-02-03 09:20 | ED.GENADULT ---
HPI - General Adult General Chief complaint: Unspecified Stated complaint: im sick Time Seen by Provider: 02/03/23 09:20 Source: patient and family (spouse) Mode of arrival: ambulatory Limitations: no limitations History of Present Illness HPI narrative: patient is a pleasant 52-year-old male with past medical history is noted below who presents emergency department today ambulatory with a steady gait with his spouse for evaluation of being sick since Thursday or Thursday. He states he has had body aches, chills, diarrhea, cough, fatigue, decreased appetite. 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 Denies any known exposure to anybody with similar symptoms or known illness. Denies chest pain shortness a breath, abdominal pain, urinary symptoms. He is taking Mucinex and [id number] medication without significant changes in his symptoms. Related Data Home Medications Medication Instructions Recorded Confirmed atorvastatin 40 mg tablet 40 mg PO DAILY 03/02/19 12/04/22 pantoprazole 40 mg tablet,delayed 40 mg PO DAILY 03/02/19 12/04/22 release zolpidem 10 mg tablet 10 mg PO DAILY PRN Insomnia 03/02/19 12/04/22 aspirin 81 mg tablet,delayed 81 mg PO DAILY 04/26/21 12/04/22 release (Richelle Low Dose Aspirin) multivitamin with minerals 1 tablet PO DAILY 04/26/21 12/04/22 glucosamine HCl 1,500 mg tablet 1,500 mg PO DAILY 05/24/21 12/04/22 Allergies Allergy/AdvReac Type Severity Reaction Status Date / Time No Known Allergies Allergy Verified 12/04/22 06:26 Review of Systems Review of Systems: CONSTITUTIONAL: +chills/sweats.denies fever +decreased appetite/fatigue. EYES: Denies visual changes, redness, or discharge. ENT: Denies rhinorrhea, congestion, sore throat, or otalgia. CARDIOVASCULAR: Denies chest pain, palpitations, or edema. RESPIRATORY: Denies cough or dyspnea. GASTROINTESTINAL: +diarrhea. Denies abdominal pain, nausea, vomiting GENITOURINARY: Denies dysuria or hematuria. SKIN: Denies rash or itching. MUSCULOSKELETAL: Denies back pain +body aches NEUROLOGIC: Denies headache, numbness, or weakness. PSYCHIATRIC: Denies anxiety or depression. All systems reviewed & are unremarkable except as noted in HPI and below PMFSH Past Medical History Medical History CAD (coronary artery disease) Colon cancer screening History of gastroesophageal reflux (GERD) Insomnia Myocardial infarction Obesity Tobacco abuse Surgical History Surgical History History of heart artery stent Social History Social History Smoking packs per day: 2 Smoking cigarettes per day: 40.0 Years smoked: 30 Smoking pack-years: 60.00 Smoking status: Heavy tobacco smoker Tobacco type: cigarettes Alcohol intake: former Alcohol use details: QUIT 2008 Substance use: never Substance use type: does not use Last use: 2008 Living arrangements: with family Gender identity (if verbalized by the patient): Male Spiritual care concerns: No Exam Narrative: GENERAL: Well-appearing, well-nourished, overweight male resting on stretcher, and in no acute distress. HEAD: Normocephalic, atraumatic. EYES: PERRLA and EOMI. ENT: Nares clear, no rhinorrhea or epistaxis. Mucous membranes slightly dry. mild congestion noted. NECK: Supple. CHEST: Clear to auscultation. No respiratory distress. HEART: Regular rate and rhythm. No murmur heard. Normal peripheral pulses. ABDOMEN: Soft, nontender, nondistended, normal active bowel sounds. EXTREMITIES: Normal range of motion. No edema. SKIN: Warm, dry, no rash. NEURO: No focal deficits. Alert and oriented x3. CN II-XII grossly intact PSYCH: Normal mood and affect. Course Vital Signs Vital signs: Vital Signs Temperature 98.9 F 02/03/23 09:02 Pulse Rate 58 L 02/03/23 09:02 Respiratory Rate 18
[2023-02-03 09:21] VITALS: BP 127/91; BP 139/91; PULSE 59; PULSE 70
[2023-02-03 09:22] VITALS: BP 140/89; PULSE 75
[2023-02-03 09:36] LABS: Basophils Percent Auto 0.3 % (0.2-1.2); Eosinophils Absolute Auto 0.1 K/mm3 (0-0.3); Eosinophils Percent Auto 2.4 % (0-4.4); Hematocrit 47.3 % (42.0-52.0); Lymphocytes Absolute Auto 1.28 K/mm3 (0.9-3.2); Lymphocytes Percent Auto 34.7 % (18.3-44.2); Mean Corpuscular HGB Conc 33.8 g/dl (32-36); Mean Corpuscular Hemoglobin 32.6 pg (26-34); Mean Corpuscular Volume 96.3 fl (80-100); Mean Platelet Volume 9.9 fl (7.4-10.4); Monocytes Absolute Auto 0.4 K/mm3 (0.1-0.6); Monocytes Percent Auto 11.7 % (2.6-8.5); Neutrophils Absolute Auto 1.9 K/mm3 (1.3-6.7); Neutrophils Percent Auto 50.9 % (45.5-73.1); Platelet Count Result 107 k/mm3 (150-375); Red Blood Count 4.91 M/mm3 (4.6-6.20); Red Cell Distribution Width 12.5 % (11.5-14.5); White Blood Count 3.7 K/mm3 (4.5-10.0)
[2023-02-03 09:47] LABS: Alanine Aminotransferase 41 U/L (6-50); Albumin Level 3.7 g/dL (3.5-5.1); Alkaline Phosphatase 106 U/L (38-126); Anion Gap 11 mmol/L (8-16); Aspartate Amino Transferase 31 U/L (17-59); Bilirubin,Total 0.8 mg/dL (0.2-1.3); Blood Urea Nitrogen 10 mg/dL (9-20); Calcium 8.4 mg/dL (8.4-10.2); Carbon Dioxide 23 mmol/L (22-30); Chloride 108 mmol/L (98-107); Estimated CRCL calculation 155 ml/min; Estimated Glomerular Filt Rate > 60; Glucose 88 mg/dL (65-110); Lipase 68 U/L (23-300); Potassium 3.8 mmol/L (3.4-5.0); Sodium 142 mmol/L (137-145)
[2023-02-03] MEDS: SODIUM CHLORIDE 0.9% IV 1,000 ML 999 ML IV CONT (10:00)
[2023-02-03 10:01] VITALS: BP 124/71; PULSE 56; RESP 16; O2SAT 97
[2023-02-03 10:11] LABS: Influenza A QL RT-PCR Positive (Negative); Influenza B QL RT-PCR Negative (Negative); SARS-CoV-2 RNA PCR Negative (Negative)
[2023-02-03 11:15] VITALS: BP 119/77; PULSE 49; RESP 18; O2SAT 99
== END 2023-02-03 11:15 | disposition home or self-care (01) ==
PROVIDERS: Emergency Medicine; Emergency Provider Nurse Practitioner; PCP Registered Nurse
DX: J10.1 Influenza due to other identified influenza virus with other respiratory manifestations (principal); I25.10 Atherosclerotic heart disease of native coronary artery without angina pectoris; I25.2 Old myocardial infarction; K21.9 Gastro-esophageal reflux disease without esophagitis; F17.210 Nicotine dependence, cigarettes, uncomplicated; Z20.822 Contact with and (suspected) exposure to COVID-19
CPT/HCPCS: 36415; 71045; 80053; 83690; 85025; 87636; 96360; 99283; J7030

== ENCOUNTER 2023-02-10 11:54 | Emergency (ER) | payer BC, SELFPAY ==
[2023-02-10] VITALS (22 sets, daily range): BP systolic 115–149; BP diastolic 57–86; PULSE 42–55; RESP 12–21; TEMP 36.3–36.7; O2SAT 92–99
--- NOTE | ~2023-02-10 | XR_ITS ---
EXAMINATION: XR chest 2V DATE: 02/10/2023 16:35 INDICATION: Cough and dizziness TECHNIQUE: frontal and lateral views of the chest were obtained. COMPARISON: Chest radiograph dated 02/03/2023 FINDINGS: There is a new focal airspace opacity at the anterolateral left lung base which could represent atele ctasis or pneumonia at the lingula. No other airspace opacities, pulmonary edema, pleural effusion or pneumothorax. Heart size is within normal limits for AP technique. Mild thoracic spondylosis. IMPRESSION: 1. New small airspace opacity at the lingula which could represent atelectasis or pneumonia. Reviewed, dictated and finalized at location A. HNUT FRYER
--- NOTE | 2023-02-10 15:11 | PC.NURSE ---
Pt states has had the flu since last week. Unable to combat fatigue. dizziness, bodyache & lack of appetite.
--- NOTE | 2023-02-10 15:54 | ED.DIZZY ---
HPI - Dizziness General Chief Complaint: Dizziness Stated Complaint: dizzy/lightheaded, weakness Time Seen by Provider: 02/10/23 15:44 History of Present Illness HPI Narrative: Patient is a 52 year old male with history of CAD s/p PCI x1 here with weakness. Patient notes that right before Onur he began having cough, fever, body aches, diarrhea. He presented to the ER about a week ago where he was diagnosed with Influenza. He notes that he no longer has diarrhea, fever or shortness of breath, but continues to have daily body aches and generalized weakness. He is a dedicated truck driver and today he felt fine while at rest sitting down and driving however when he got up to open his back door, he became light headed, had spots in his vision and was having bilateral lower extremity weakness. He denies passing out, denies any chest pain. He currently no longer feels faint however he endorses diffuse full body fatigue and is unsure why it has taken him so long to get better after his influenza. He has attempted to keep up his hydration at home. Related Data Home Medications Medication Instructions Recorded Confirmed atorvastatin 40 mg tablet 40 mg PO DAILY 03/02/19 12/04/22 pantoprazole 40 mg tablet,delayed 40 mg PO DAILY 03/02/19 12/04/22 release zolpidem 10 mg tablet 10 mg PO DAILY PRN Insomnia 03/02/19 12/04/22 aspirin 81 mg tablet,delayed 81 mg PO DAILY 04/26/21 12/04/22 release (Richelle Low Dose Aspirin) multivitamin with minerals 1 tablet PO DAILY 04/26/21 12/04/22 glucosamine HCl 1,500 mg tablet 1,500 mg PO DAILY 05/24/21 12/04/22 Allergies Allergy/AdvReac Type Severity Reaction Status Date / Time No Known Allergies Allergy Verified 12/04/22 06:26 Review of Systems Review of Systems: All systems reviewed & are unremarkable except as noted in HPI and below PMFSH Past Medical History Medical History CAD (coronary artery disease) Colon cancer screening History of gastroesophageal reflux (GERD) Insomnia Myocardial infarction Obesity Tobacco abuse Surgical History Surgical History History of heart artery stent Social History Social History Smoking packs per day: 2 Smoking cigarettes per day: 40.0 Years smoked: 30 Smoking pack-years: 60.00 Smoking status: Heavy tobacco smoker Tobacco type: cigarettes Alcohol intake: former Alcohol use details: QUIT 2008 Substance use: never Substance use type: does not use Last use: 2008 Living arrangements: with family Gender identity (if verbalized by the patient): Male Spiritual care concerns: No Exam Narrative: GENERAL: Well-appearing, well-nourished, and in no acute distress. HEAD: Normocephalic, atraumatic. EYES: PERRLA and EOMI. ENT: Nares clear. Mucous membranes moist. NECK: Supple. CHEST: Clear to auscultation. No respiratory distress. HEART: Regular rate and rhythm. Normal peripheral pulses. ABDOMEN: Soft, nontender, nondistended. EXTREMITIES: Normal range of motion. No edema. SKIN: Warm, dry, no rash. NEURO: No focal deficits. Alert and oriented x3. PSYCH: Normal mood and affect. Course Course Emergency Course: Chart review performed. Patient here with dizziness. He was seen here on 02/03/23, basic lab work during that time was negative, he was found to be positive for Influenza A and discharged home. Patient seen and evaluated. Appears tired but has no focal neurological deficits, in no respiratory distress. Will do broad workup for near syncope/weakness. Lab work and imaging reviewed. No leukocytosis, Renal function normal, electrolytes within normal limits. Troponin normal. Repeat troponin negative. Patient re-evaluated, feeling a bit better after IV fluids. Requesting to be discharged at this time. The results of pertinent diagnostic studies and exam fin
--- NOTE | 2023-02-10 15:56 | ECG_ITS ---
Measurements Intervals [place] Rate: 48 P: 88 WI: 172 QRS: -1 QRSD: 129 T: 14 QT: 463 QTc: 415 Interpretive Statements SINUS BRADYCARDIA INCOMPLETE RIGHT BUNDLE BRANCH BLOCK BORDERLINE T WAVE ABNORMALITY- INFERIOR LEADS ABNORMAL ECG COMPARED TO ECG 07/25/2022 17:10:00 NO SIGNIFICANT CHANGES Electronically Signed On 02-10-2023 16:54:35 GRAPE [employer]UNER by Saran Castorena D.O.
[2023-02-10 16:09] LABS: Basophils Percent Auto 0.2 % (0.2-1.2); Eosinophils Absolute Auto 0.1 K/mm3 (0-0.3); Eosinophils Percent Auto 1.1 % (0-4.4); Hematocrit 42.6 % (42.0-52.0); Hemoglobin 14.4 g/dL (14.0-18.0); Immature Granulocyte Absolute 0.03 K/mm3 (0.00-0.031); Immature Granulocyte Percent A 0.4 % (0-0.5); Lymphocytes Absolute Auto 2.48 K/mm3 (0.9-3.2); Mean Corpuscular HGB Conc 33.8 g/dl (32-36); Mean Corpuscular Hemoglobin 32.4 pg (26-34); Mean Corpuscular Volume 95.9 fl (80-100); Monocytes Absolute Auto 0.9 K/mm3 (0.1-0.6); Monocytes Percent Auto 10.2 % (2.6-8.5); Neutrophils Absolute Auto 5.1 K/mm3 (1.3-6.7); Neutrophils Percent Auto 59.1 % (45.5-73.1); Platelet Count Result 186 k/mm3 (150-375); Red Blood Count 4.44 M/mm3 (4.6-6.20); Red Cell Distribution Width 12.5 % (11.5-14.5); White Blood Count 8.5 K/mm3 (4.5-10.0)
[2023-02-10 16:23] LABS: Alanine Aminotransferase 40 U/L (6-50); Alkaline Phosphatase 89 U/L (38-126); Anion Gap 9 mmol/L (8-16); Aspartate Amino Transferase 35 U/L (17-59); Bilirubin,Total 1.5 mg/dL (0.2-1.3); Blood Urea Nitrogen 12 mg/dL (9-20); Calcium 8.6 mg/dL (8.4-10.2); Carbon Dioxide 25 mmol/L (22-30); Chloride 106 mmol/L (98-107); Estimated CRCL calculation 155 ml/min; Estimated Glomerular Filt Rate > 60; Glucose 80 mg/dL (65-110); Potassium 3.7 mmol/L (3.4-5.0); Sodium 140 mmol/L (137-145)
[2023-02-10 16:28] LABS: NT Pro B Type Natriuretic Pept 73 pg/mL (19.9-100); Troponin I < 0.012 ng/mL (0.000-0.034)
[2023-02-10] MEDS: SODIUM CHLORIDE 0.9% IV 1,000 ML 999 ML IV CONT (17:10)
--- NOTE | 2023-02-10 18:48 | ECG_ITS ---
Measurements Intervals [place] Rate: 49 P: 38 SD: 178 QRS: -2 QRSD: 130 T: 16 QT: 462 QTc: 421 Interpretive Statements SINUS BRADYCARDIA RIGHT BUNDLE BRANCH BLOCK ABNORMAL ECG COMPARED TO ECG 02/10/2023 16:09:48 NO SIGNIFICANT CHANGES Electronically Signed On 02-11-2023 7:41:03 LEAN SENSEI by Saran Castorena D.O.
[2023-02-10 19:27] LABS: Troponin I < 0.012 ng/mL (0.000-0.034)
[2023-02-10 19:43] LABS: Appearance Urine Clear (Clear); Bilirubin Urine Negative (Negative); Blood Urine Negative (Negative); Color Urine Yellow (Yellow); Glucose Urine UA Negative (Negative); Ketones Urine Negative (Negative); Leukocyte Esterase Ur Negative LEU/UL (Negative); Nitrate Urine Negative (Negative); Protein Urine Negative (Negative); Specific Grav Ur 1.024 (1.001-1.035); pH Urine 5.5 (5.0-9.0)
[2023-02-10 19:54] LABS: Add Urine Microscopic? NO
== END 2023-02-10 21:31 | disposition home or self-care (01) ==
PROVIDERS: Emergency Provider Student in an Organized Health Care Education/Training Program; PCP Registered Nurse
DX: R55 Syncope and collapse (principal); M62.81 Muscle weakness (generalized); I25.10 Atherosclerotic heart disease of native coronary artery without angina pectoris; I25.2 Old myocardial infarction; F17.210 Nicotine dependence, cigarettes, uncomplicated; Z86.718 Personal history of other venous thrombosis and embolism
CPT/HCPCS: 36415; 71046; 80053; 81003; 83880; 84484; 85025; 93005; 96360; 96361; 99284; J7030

== ENCOUNTER 2023-10-14 13:06 | Emergency (ER) | payer BC, SELFPAY ==
--- NOTE | ~2023-10-14 | XR_ITS ---
EXAMINATION: XR chest 2V 10/14/2023 13:43 INDICATION: Chest pain PROCEDURE: 2 view chest COMPARISON: Comparison to multiple prior studies sequentially, with oldest reviewed study dated 12/10. FINDINGS: The lungs are clear. The cardiomediastinal silhouette is within normal limits. There are no pleural effusions. There is no pneumothorax suspected. IMPRESSION: 1: NO ACUTE CARDIOPULMONARY DISEASE. Reviewed, dictated and finalized at location B.
--- NOTE | 2023-10-14 13:07 | ECG_ITS ---
Test Date: 2023-10-14 13:11:58 Measurements Intervals [place] Rate: 49 P: 81 UT: 166 QRS: 4 QRSD: 134 T: 30 QT: 451 QTc: 410 Interpretive Statements SINUS BRADYCARDIA RIGHT BUNDLE BRANCH BLOCK ABNORMAL ECG No previous ECG available for comparison Electronically Signed On 10-14-2023 14:07:26 CDT by Saran Castorena D.O.
[2023-10-14 13:17] LABS: Basophils Percent Auto 0.3 % (0.2-1.2); Eosinophils Absolute Auto 0.1 K/mm3 (0-0.3); Eosinophils Percent Auto 1.9 % (0-4.4); Hematocrit 42.9 % (42.0-52.0); Hemoglobin 14.8 g/dL (14.0-18.0); Immature Granulocyte Absolute 0.02 K/mm3 (0.00-0.031); Immature Granulocyte Percent A 0.3 % (0-0.5); Lymphocytes Absolute Auto 2.23 K/mm3 (0.9-3.2); Mean Corpuscular HGB Conc 34.5 g/dl (32-36); Mean Corpuscular Hemoglobin 33.5 pg (26-34); Mean Corpuscular Volume 97.1 fl (80-100); Mean Platelet Volume 9.3 fl (7.4-10.4); Monocytes Absolute Auto 0.6 K/mm3 (0.1-0.6); Monocytes Percent Auto 7.9 % (2.6-8.5); Neutrophils Absolute Auto 4.4 K/mm3 (1.3-6.7); Neutrophils Percent Auto 59.6 % (45.5-73.1); Platelet Count Result 144 k/mm3 (150-375); Red Blood Count 4.42 M/mm3 (4.6-6.20); Red Cell Distribution Width 12.9 % (11.5-14.5); White Blood Count 7.4 K/mm3 (4.5-10.0)
[2023-10-14 13:25] VITALS: BP 144/73; PULSE 48; RESP 18; TEMP 36.7; O2SAT 100
[2023-10-14 13:37] LABS: Prothrombin Time 13.1 Seconds (11.1-14.7)
[2023-10-14 13:39] LABS: Partial Thromboplastin Time 26.9 Seconds (22.3-36.8)
[2023-10-14 13:43] LABS: Troponin I < 0.012 ng/mL (0.000-0.034)
[2023-10-14 13:56] LABS: Alanine Aminotransferase 49 U/L (6-50); Albumin Level 4.1 g/dL (3.5-5.1); Alkaline Phosphatase 91 U/L (38-126); Anion Gap 8 mmol/L (4-12); Aspartate Amino Transferase 37 U/L (17-59); Bilirubin,Total 0.7 mg/dL (0.2-1.3); Blood Urea Nitrogen 13 mg/dL (9-20); Calcium 8.8 mg/dL (8.4-10.2); Carbon Dioxide 27 mmol/L (22-30); Chloride 105 mmol/L (98-107); Estimated CRCL calculation 136 ml/min; Estimated Glomerular Filt Rate > 60; Glucose 90 mg/dL (65-110); Lipase 51 U/L (23-300); Potassium 3.8 mmol/L (3.4-5.0); Sodium 140 mmol/L (137-145)
--- NOTE | 2023-10-14 15:17 | ED.CHESTPAIN ---
HPI - Chest Pain General Chief Complaint: Chest Pain <Margaux To PA-C - Last Filed: 10/14/23 15:23> Stated Complaint: cardiac problems <Margaux To PA-C - Last Filed: 10/14/23 15:23> Time Seen by Provider: 10/14/23 17:14 <Margaux To PA-C - Last Filed: 10/14/23 15:23> Focused HPI: 52 y/o male with history of CAD, s/p stent placement in 2015, hypertension, hyperlipidemia presents to the emergency department for intermittent chest pain or shortness of breath for several weeks. Patient states today while he was walking to the truck. He began having chest pain shortness of breath again which prompted him to come to the ED. States the pain is located to the left side of his chest and does not radiate anywhere. He endorses a first-degree family history of cardiac disease. Also states he smokes greater than 2 packs a day for several years. He denies cough or congestion, fever. He is reporting generalized body aches, lightheadedness and malaise. Denies history of CHF, denies lower extremity edema however this is appreciated on exam GENERAL: Well-appearing, well-nourished, and in no acute distress. HEAD: Normocephalic, atraumatic. CHEST: Clear to auscultation. ?No respiratory distress. EXT: Bilateral 1+ pitting lower extremity edema HEART: Regular rate and rhythm.? NEURO: ?Alert and oriented x3. Patient screened in triage and initial orders placed.? ?Additional care and disposition to be based upon?diagnostic testing and treatment. <Margaux To PA-C - Last Filed: 10/14/23 15:23> History of Present Illness HPI narrative: 52-year-old male present to the emergency department for evaluation for intermittent chest pain and shortness of breath. Patient states this has been ongoing for the last few days. Patient states he has been a 2 [id number] smoker for multiple years. Patient states that he did quit smoking and switched to vaping but now has switched back to smoking. Patient denies any prior cardiac history. Patient denies any prior history of PE DVT or CHF. <Arnold Rosales MD - Last Filed: 10/14/23 21:24> Related Data Home Medications: Home Medications Medication Instructions Recorded Confirmed atorvastatin 40 mg tablet 40 mg PO DAILY 03/02/19 12/04/22 pantoprazole 40 mg tablet,delayed 40 mg PO DAILY 03/02/19 12/04/22 release zolpidem 10 mg tablet 10 mg PO DAILY PRN Insomnia 03/02/19 12/04/22 aspirin 81 mg tablet,delayed 81 mg PO DAILY 04/26/21 12/04/22 release (Irchelle Low Dose Aspirin) multivitamin with minerals 1 tablet PO DAILY 04/26/21 12/04/22 glucosamine HCl 1,500 mg tablet 1,500 mg PO DAILY 05/24/21 12/04/22 <Margaux To PA-C - Last Filed: 10/14/23 15:23> Allergies/Adverse Reactions: Allergies Allergy/AdvReac Type Severity Reaction Status Date / Time No Known Allergies Allergy Verified 12/04/22 06:26 <Margaux To PA-C - Last Filed: 10/14/23 15:23> Review of Systems Review of Systems: All systems reviewed & are unremarkable except as noted in HPI and below <Arnold Rosales MD - Last Filed: 10/14/23 21:24> [facility] Past Medical History Medical History: Medical History CAD (coronary artery disease) Colon cancer screening History of gastroesophageal reflux (GERD) Insomnia Myocardial infarction Obesity Tobacco abuse <Margaux To PA-C - Last Filed: 10/14/23 15:23> Surgical History Surgical History: Surgical History History of heart artery stent <Margaux To PA-C - Last Filed: 10/14/23 15:23> Social History Social History: Social History Smoking packs per day: 2 Smoking cigarettes per day: 40.0 Years smoked: 30 Smoking pack-years: 60.00 Smoking status: Heavy tobacco smoker Tobacco type: cigarettes Alcohol intak
[2023-10-14 15:35] LABS: D Dimer 0.39 ug/mL (<0.48)
[2023-10-14 15:44] LABS: NT Pro B Type Natriuretic Pept 175 pg/mL (19.9-100)
--- NOTE | 2023-10-14 16:09 | ECG_ITS ---
Test Date: 2023-10-14 16:24:44 Measurements Intervals [place] Rate: 47 P: 80 MS: 168 QRS: -2 QRSD: 130 T: 28 QT: 471 QTc: 417 Interpretive Statements SINUS BRADYCARDIA RIGHT BUNDLE BRANCH BLOCK ABNORMAL ECG Compared to ECG 10/14/2023 13:11:58 NO SIGNIFICANT CHANGE Electronically Signed On 10-14-2023 20:08:30 CDT by Saran Castorena D.O.
[2023-10-14 16:35] VITALS: BP 130/78; PULSE 48; RESP 17; O2SAT 99
[2023-10-14 17:07] LABS: Influenza A QL RT-PCR Negative (Negative); Influenza B QL RT-PCR Negative (Negative); RSV RNA, RT-PCR Negative (Negative); SARS-CoV-2 RNA PCR Negative (Negative)
[2023-10-14 17:35] LABS: Troponin I < 0.012 ng/mL (0.000-0.034)
[2023-10-14 17:41] VITALS: PULSE 48
[2023-10-14 17:42] VITALS: BP 133/81; PULSE 46; RESP 17; O2SAT 98
[2023-10-14] MEDS: SODIUM CHLORIDE 0.9% IV 1,000 ML 999 ML IV CONT (17:52)
[2023-10-14 17:54] VITALS: BP 131/79; PULSE 43; RESP 19; O2SAT 98
[2023-10-14 19:47] VITALS: BP 153/83; PULSE 88; RESP 20; TEMP 36.9; O2SAT 96
[2023-10-14 19:51] LABS: Troponin I < 0.012 ng/mL (0.000-0.034)
== END 2023-10-14 19:48 | disposition home or self-care (01) ==
PROVIDERS: Physician Assistant; Emergency Provider Emergency Medicine; PCP Registered Nurse
DX: R07.9 Chest pain, unspecified (principal); I10 Essential (primary) hypertension; I25.10 Atherosclerotic heart disease of native coronary artery without angina pectoris; E78.5 Hyperlipidemia, unspecified; Z95.9 Presence of cardiac and vascular implant and graft, unspecified; K21.9 Gastro-esophageal reflux disease without esophagitis; I25.2 Old myocardial infarction; E66.9 Obesity, unspecified; Z68.34 Body mass index [BMI] 34.0-34.9, adult; F17.210 Nicotine dependence, cigarettes, uncomplicated; Z20.822 Contact with and (suspected) exposure to COVID-19
CPT/HCPCS: 36415; 71046; 80053; 83690; 83880; 84484; 85025; 85380; 85610; 85730; 87637; 93005; 96360; 99284; J7030